=== PATIENT | female | born 1995 | race Asian ===

== ENCOUNTER 2024-05-12 01:30 | Inpatient (IN) | payer OTHER ==
[2024-05-12] MEDS: LACTATED RINGERS SOLUTION 1,000 ML/1,000 ML INFUS.BAG IV SCH (01:32)
[2024-05-12] MEDS ORDERED: OXYTOCIN 20 UNITS in 0.9% NS 20 UNIT/1,000 ML INFUS.BAG IV ONE (01:34)
[2024-05-12] MEDS: OXYTOCIN 20 UNITS in 0.9% NS 20 UNIT/1,000 ML INFUS.BAG IV SCH (01:44)
[2024-05-12] MEDS ORDERED: IBUPROFEN 600 MG TABLET (FP) PO ONE (01:47)
[2024-05-12] MEDS: IBUPROFEN 600 MG TABLET (FP) PO PRN (01:50)
[2024-05-12] MEDS ORDERED: oxyCODONE HCL 5 MG TABLET PO PRN (02:03)
[2024-05-12] MEDS ORDERED: BENZOCAINE 28 GM HEMORRHOIDAL OINTMENT TP PRN (02:03)
[2024-05-12] MEDS ORDERED: ACETAMINOPHEN 325 MG TABLET (FP) PO PRN (02:03)
[2024-05-12] MEDS ORDERED: BISACODYL 10 MG SUPP.RECT RC PRN (02:03)
[2024-05-12] MEDS ORDERED: BENZOCAINE 20% 57 GM BOTTLE TP PRN (02:03)
[2024-05-12] MEDS ORDERED: METHYLERGONOVINE MALEATE 0.2 MG/1 ML AMP IM PRN (02:03)
[2024-05-12] MEDS ORDERED: WITCH HAZEL 50% (TUCKS) 40 PAD/JAR PAD TP PRN (02:03)
[2024-05-12 02:04] LABS: BASO % 0.3 % (0-2.0); EOS % 0.6 % (0-4.5); HEMATOCRIT 36.9 % (32.4-45.2); HEMOGLOBIN 12.8 GM/dL (10.7-15.3); LYMPH % 27.9 % (8-40); MCH 34.2 pg (25.7-33.7); MCHC 34.7 g/dl (32.0-36.0); MEAN CELL VOLUME 98.8 fl (80-96); MONO % 6.1 % (3.8-10.2); NEUT % 65.1 % (42.8-82.8); PLATELET COUNT 270 10^3/uL (134-434); RBC 3.73 M/mm3 (3.60-5.2); RDW 14.6 % (11.6-15.6); WHITE BLOOD COUNT 8.7 K/mm3 (4.0-10.0)
[2024-05-12 02:17] LABS: POTASSIUM 4.2 mmol/L (3.5-5.1)
[2024-05-12 02:19] LABS: BLOOD UREA NITROGEN 11.5 mg/dL (7-18)
[2024-05-12 02:23] LABS: CREATININE 0.7 mg/dL (0.55-1.3)
[2024-05-12 02:28] LABS: INR 0.8 (0.83-1.09); PROTHROMBIN TIME (PATIENT) 9.3 SEC (9.7-13.0)
[2024-05-12 02:31] LABS: ACTIVATED PTT 27.1 SECONDS (25.2-36.5)
[2024-05-12 02:41] LABS: CALCIUM 9.3 mg/dL (8.5-10.1)
[2024-05-12 03:14] LABS: HIV INTERPRETATION NEGATIVE (NEGATIVE)
[2024-05-12] MEDS: PRENATAL VITAMINS W/ FOLIC ACID TABLET (FP) PO SCH (09:15)
[2024-05-12] MEDS: FERROUS SO4 325 MG TABLET (FP) PO SCH (09:15)
[2024-05-13 08:17] LABS: BASO % 0.1 % (0-2.0); EOS % 0.8 % (0-4.5); HEMATOCRIT 35.5 % (32.4-45.2); HEMOGLOBIN 12.1 GM/dL (10.7-15.3); LYMPH % 18.4 % (8-40); MCH 34.1 pg (25.7-33.7); MCHC 34.1 g/dl (32.0-36.0); MEAN CELL VOLUME 100.1 fl (80-96); MEAN PLT VOLUME 7.8 fl (7.5-11.1); MONO % 4.9 % (3.8-10.2); NEUT % 75.8 % (42.8-82.8); PLATELET COUNT 247 10^3/uL (134-434); RBC 3.55 M/mm3 (3.60-5.2); RDW 15.1 % (11.6-15.6); WHITE BLOOD COUNT 10.6 K/mm3 (4.0-10.0)
[2024-05-13 13:43] LABS: POC NITRAZINE POS
[2024-05-13] MEDS: SENNOSIDES/DOCUSATE COMBO (SENNA PLUS) TABLET (UD) PO PRN (21:40)
[2024-05-13 21:55] VITALS: BP 108/56; PULSE 69; RESP 17; TEMP 98.3
== END 2024-05-14 13:13 | disposition home or self-care (01) | DRG 807 ==
LOC: JLDR 01:30 → J3W 03:59
PROVIDERS: ADMIT Obstetrics & Gynecology; ATTEND Obstetrics & Gynecology
PROC: 0HQ9XZZ Repair Perineum Skin, External Approach (ICD-10-PCS; principal; 2024-05-12)
PROC: 10E0XZZ Delivery of Products of Conception, External Approach (ICD-10-PCS; 2024-05-12)
DX: O70.0 First degree perineal laceration during delivery (principal); Z37.0 Single live birth; Z3A.39 39 weeks gestation of pregnancy
CPT/HCPCS: 36415; 59409; 80048; 83986-QW; 85025; 85610; 85730; 86780; 86850; 86900; 86901; 87389